=== PATIENT | female | born 1975 | race Caucasian/White ===

== ENCOUNTER 2017-06-22 17:46 | Emergency (ER) | payer MEDICAID ==
[~2017-06-22] VITALS: Ht 165.1 cm; Wt 89.0 kg
[~2017-06-22 17:46] MED LIST: BEN50 PO; CETI10CA PO; EPIN0.3P4 INJ; HC30CR25 TOP; HYDR-3498 PO; MAG-19 PO; OMEP20CA9 PO; ONDA4TAB35 PO; PRED20TA PO
[2017-06-22 17:50] VITALS: Ht 165.1 cm; Wt 89.0 kg
[2017-06-22] MEDS ORDERED: HYDR-906 PO (18:37)
[2017-06-22] MEDS ORDERED: CEPH-443 PO (18:37)
--- NOTE | 2017-06-22 18:40 | ERD ---
ER Documentation Chief Complaint Date/Time DATE: 06/22/17 TIME: 18:39 Chief Complaint Complains of nail bed infection HPI This a 41-year-old female who complains of an infection in her right ring finger nail bed. The patient bites her fingernails and she is complaining of 2 weeks of pain and swelling along the base of her ring finger nail. There is some swelling and tenderness there is no discharge of pus no fever no pain at the pad of the finger pain is described as sharp worse with palpation better with living alone ROS All systems reviewed and are negative except as per history of present illness. Medications Home Meds Active Scripts Hydrocodone/Acetaminophen ([place] 5-325 Tablet) 1 Each Tablet, 1 TAB PO Q6H Y for PAIN, #20 TAB Prov:RENNY MALONEY DO 06/22/17 Cephalexin* (Keflex*) 500 Mg Capsule, 500 MG PO QID for 7 Days, CAP Prov:RENNY MALONEY DO 06/22/17 Epinephrine (Epipen 2-[place]) 0.3 Mg/0.3 Ml Pen.injctr, 1 EA INJ ONCE Y for ALLERGIC REACTION, #1 EA Prov:KAREN GREWAL PA-C 06/28/16 Diphenhydramine Hcl* (Benadryl*) 50 Mg Cap, 50 MG PO Q6 Y for ITCHING, #20 CAP Prov:KAREN GREWAL PA-C 06/28/16 Prednisone* (Prednisone*) 20 Mg Tab, 40 MG PO DAILY for 4 Days, #4 TAB Prov:KAREN GREWAL PA-C 06/28/16 Hydrocortisone* Topical (Hydrocortisone* Topical) 2.5%-28.3 Gm Cream..g., 1 APPLIC TOP BID for 7 Days, #1 TUB Prov:BILLY FUENTES MD 06/27/16 Cetirizine Hcl* (Zyrtec*) 10 Mg Capsule, 10 MG PO DAILY, #15 TAB.CHEW Prov:BILLY FUENTES MD 06/27/16 Prednisone* (Prednisone*) 20 Mg Tab, 40 MG PO DAILY for 4 Days, TAB Start 06/28/2016 Prov:BILLY FUENTES MD 06/27/16 Magaldrate/Simethicone* (Mylanta*) 355 Ml Susp, 30 ML PO QID Y for GASTROINTESTINAL UPSET, #1 BOTTLE Prov:FARRAH NAIR NP 01/03/16 Omeprazole* (Prilosec*) 20 Mg Capsule.dr, 20 MG PO DAILY, #30 CAP Prov:FARRAH NAIR NP 01/03/16 Ondansetron Hcl* (Zofran* ODT) 4 mg -ODT Tab.disper, 4 MG PO Q8 Y for NAUSEA AND OR VOMITING, #30 TAB Prov:FARRAH NAIR NP 01/03/16 Hydrocodone Bit-Acetaminophen* ([place]*) 5-325 Mg Tab, 1 TAB PO Q6 Y for PAIN, # 20 TAB Prov:FARRAH NAIR NP 01/03/16 Reported Medications [none] Unknown Strength No Conflict Check 01/03/16 Allergies Allergies: Coded Allergies: No Known Allergy (Verified Allergy, Mild, 10/18/07) PMhx/Soc History of Surgery: Yes () Anesthesia Reaction: No Hx Neurological Disorder: No Hx Respiratory Disorders: No Hx Cardiac Disorders: No Hx Psychiatric Problems: No Hx Miscellaneous Medical Probl: No Hx Alcohol Use: No Hx Substance Use: No Hx Tobacco Use: No FmHx Family History: No coronary disease Physical Exam Vitals Vital Signs Date Time Temp Pulse Resp B/P Pulse Ox O2 Delivery O2 Flow Rate FiO2 06/22/17 17:50 99.2 70 20 120/71 98 Physical Exam Const: [Well-developed, well-nourished] Head: [Atraumatic, normocephalic] Eyes: [Normal Conjunctiva, PERRLA, EOMI, normal sclera, no nystagmus] ENT: [Normal External Ears, Nose and Mouth, moist mucus membranes.] Neck: [Full range of motion. No meningismus, no lymphadenopathy.] Resp: [Clear to auscultation bilaterally, no wheezing, rhonchi, rales] Cardio: [Regular rate and rhythm, no murmurs, S1 S2 present] Abd: [Soft, non tender x 4, non distended. Normal bowel sounds, no guarding or rebound, no pulsitile abdominal masses or bruits] Skin: [No petechiae or rashes, no ecchymosis , no maculopapular rash] Back: [No midline or flank tenderness] Ext: [No cyanosis, or edema, FROM x 4, normal inspection, neurovascularly intact x 4, base of the right ring finger has some swelling and tenderness there is no induration that would warrant I&D of this. Sruthi] Neur: [Awake and alert, STR 5/5 x 4, sensation intact x 4, no focal findings, cerebellum intact] Psych: [Normal Mood and Affect] Procedures/MDM We will do home soaks with the patient. We will provide her with Keflex and pain control Departure Diagnosis: Primary Impression: Paronychia Condition: Stable Patient Instructions: RENNY Vela DO Jun 22, 2017 18:40
== END 2017-06-22 18:57 | disposition home or self-care (01) ==
LOC: FTE 17:46
DX: L03.011 Cellulitis of right finger (principal)
CPT/HCPCS: 99284